=== PATIENT | female | born 1970 | race Two or more races ===

== ENCOUNTER 2019-09-29 20:31 | Emergency (ER) | payer OTHER ==
[~2019-09-29] VITALS: Ht 167.6 cm; Wt 78.2 kg
--- NOTE | 2019-09-29 20:52 | NUR ---
THIS IS A 49Y F THAT COMES IN TONIGHT FOR ABD PAIN. PT WAS SEEN AT [facility] LAST THURSDAY DX WITH GASTRITIS. PT STS PRILOSEC NO HELP. PT CONNECTED TO MONITORING NADN VSS
--- NOTE | 2019-09-29 21:04 | NUR ---
MD AT BEDSIDE TO ASSESS PT
[2019-09-29] MEDS ORDERED: ONDANSETRON 2MG/ML, 2ML ONE (21:28)
[2019-09-29] MEDS ORDERED: HYDROmorphone 2 MG/ML, 1ML ONE (21:28)
[2019-09-29] MEDS ORDERED: SODIUM CHLORIDE 0.9% 1,000ML IVBOLUS ONE (21:30)
[2019-09-29] MEDS ORDERED: SODIUM CHLORIDE FLUSH 10ML SYR IVF ONE (21:30)
[2019-09-29] MEDS ORDERED: HYDROmorphone 2 MG/ML, 1ML IVPush PRN (21:30)
[2019-09-29] MEDS ORDERED: ONDANSETRON 2MG/ML, 2ML IVPush ONE (21:30)
--- NOTE | 2019-09-29 21:41 | NUR ---
PIV STARTED PT MEDICATED PER MAR
[2019-09-29 22:00] LABS: BASOPHILS # (AUTO) 0.02 x10^3/uL (0-0.1); BASOPHILS % (AUTO) 0 % (0-1); EOSINOPHILS # (AUTO) 0.03 x10^3/uL (0-0.4); EOSINOPHILS % (AUTO) 0 % (1-7); LYMPHOCYTES # (AUTO) 3.65 x10^3/uL (1-3.4); LYMPHOCYTES % (AUTO) 42 % (22-44); MD NO; MEAN CORPUSCULAR HEMOGLOBIN 29.1 pg (27.0-34.8); MEAN CORPUSCULAR HGB CONC 33.9 g/dL (32.4-35.8); MEAN CORPUSCULAR VOLUME 85.9 fL (80-100); MEAN PLATELET VOLUME 8.4 fL (7.4-10.4); MONOCYTES # (AUTO) 0.63 x10^3/uL (0.2-0.8); MONOCYTES % (AUTO) 7 % (2-9); NEUTROPHILS # (AUTO) 4.35 x10^3/uL (1.8-6.8); NEUTROPHILS % (AUTO) 50 % (42-75); PLATELET COUNT 275 x10^3/uL (130-400); RED BLOOD COUNT 4.49 x10^6/uL (3.82-5.3)
[2019-09-29 22:09] LABS: ALANINE AMINOTRANSFERASE 28 U/L (12-78); ALBUMIN 3.1 g/dL (3.4-5.0); ANION GAP 6 mmol/L (5-15); CALCIUM 8.2 mg/dL (8.5-10.1); CHLORIDE 109 mmol/L (98-107); CREATININE 0.69 mg/dL (0.55-1.02)
[2019-09-29 22:14] LABS: ALKALINE PHOSPHATASE 65 U/L (45-117); BILIRUBIN,TOTAL 0.3 mg/dL (0.2-1.0); TOTAL PROTEIN 7.1 g/dL (6.4-8.2); TROPONIN I < 0.015 ng/mL (0.000-0.045)
[2019-09-29 23:21] VITALS: BP 160/82
== END 2019-09-29 23:23 | disposition home or self-care (01) ==
LOC: ED 21:15
DX: R07.89 Other chest pain (principal); R10.13 Epigastric pain; M54.6 Pain in thoracic spine
CPT/HCPCS: 36415; 71045; 76700; 80053; 83690; 84484; 85025; 93005; 96374; 96375; 99285; J1170; J2405; J7030